=== PATIENT | female | born 1985 | race African-American/Black ===

== ENCOUNTER 2017-10-07 12:01 | Emergency (ER) | payer OTHER ==
[~2017-10-07] VITALS: Ht 170.2 cm; Wt 69.9 kg
[~2017-10-07 12:01] MED LIST: MOTRIN 800MG T800 MG PO; PERCOCET 325 MG1 TA2 PO
[2017-10-07 12:25] VITALS: BP 117/72
--- NOTE | 2017-10-07 12:37 | ED MVC/FALL/TRAUMA COMPLAINT ---
History of Present Illness General Chief Complaint: Fall Stated Complaint: FALL 24 WEEKS PREG/LBP Source: patient Exam Limitations: no limitations Vital Signs & Intake/Output Vital Signs & Intake/Output Vital Signs Date Time Temp Pulse Resp B/P B/P Pulse O2 O2 Flow FiO2 Mean Ox Delivery Rate 10/07 1319 98.1 10/07 1225 78 18 117/72 96 Room Air Allergies Coded Allergies: milk (DIARRHEA 10/07/17) Reconcile Medications No Known Home Medications Triage Note: PT TO ER FROM [facility] C/C COCCYX PAIN S/P SLIP AND FALL IN THE SNOW. PT WAS CLEARED BY [facility] AND HAD STRESS TEST. Triage Nurses Notes Reviewed? yes Onset: Abrupt Duration: constant Timing: single episode today Severity: mild Severity Numbers: 3 : Yes Patient currently breastfeeds: No HPI: Patient is a 32-year-old female who is approximately 24 weeks in which her OB is Dr. Wells who presents emergency room stating that while ambulating outside today in the snow she slipped and fell on her sacral coccyx region resulting cute onset of localized sacral pain. Patient denies any preceding episode lightheaded sensation or dizziness denies any head strike denies any neck or lumbar spine pain denies any extremity pain. Denies any nausea vomiting abdominal pain vaginal bleeding or discharge or dysuria. Patient was evaluated prior to emergency room encounter by [facility] which they cleared patient and advised patient to presents emergency room for evaluation of the event. (Sony Silva) Past History Travel History Traveled to [place] past 21 day No Medical History Any Pertinent Medical History? none Tetanus Vaccine: 06/23/12 Surgical History Surgical History: N Psychosocial History What is your primary language Italian Tobacco Use: Never used Family History Hx Contributory? No (Sony Silva) Review of Systems Review of Systems Constitutional: Reports: no symptoms. Eyes: Reports: no symptoms. Ears, Nose, Throat, Mouth: Reports: no symptoms. Respiratory: Reports: no symptoms. Cardiovascular: Reports: no symptoms. Gastrointestinal/Abdominal: Reports: no symptoms. Genitourinary: Reports: no symptoms. Musculoskeletal: Reports: see HPI. Skin: Reports: no symptoms. Neurological/Psychological: Reports: no symptoms. All Other Systems: Reviewed and Negative (Sony Silva) Physical Exam Physical Exam General Appearance: no apparent distress, alert, comfortable Head: atraumatic Eyes: Bilateral: normal appearance. Ears, Nose, Throat, Mouth: moist mucous membrane Neck: normal inspection Respiratory: normal breath sounds Cardiovascular: regular rate/rhythm Gastrointestinal: normal bowel sounds, soft, non-tender Back: normal inspection, mild sacral/coccyx pain upon palpation Extremities: normal range of motion Neurologic/Psych: no motor/sensory deficits, awake Core Measures ACS in differential dx? No CVA/TIA Diagnosis No Sepsis Present: No Sepsis Focused Exam Completed? No (Sony Silva) Progress Differential Diagnosis: abd injury, C/T/L spine injury, ext injury, ICH, pelvis injury, pnemothorax, spinal cord injury Plan of Care: Patient currently is in no apparent distress nontender abdomen has been cleared by childbirth center patient is neurovascular intact to bilateral lower extremities no signs of trauma on exam however patient does have concerns of suspecting coccyx injury X-rays were not pursued at this time due to patient's symptoms clinical presentation and physical exam and active Patient normal steady gait No or GI symptoms (Sony Silva) Departure Departure Disposition: HOME OR SELF CARE Condition: Stable Clinical Impression Primary Impression: Coccyx pain Secondary Impressions: Fall Referrals: Patient Has No Primary Care Dr (PCP/Family) Additional Instructions: As discussed if symptoms worsen or if he develop any new concerning symptom return to the emergency room, follow-up with your [facility] as directed, begin over -the-counter Tylenol for pain and inflammation Departure Forms: Customer Survey General Discharge Information Prescriptions: Current Visit Scripts No Known Home Medications (Sony Silva) PA/REPORT WRITER Co-Sign Statement Statement: ED Attending supervision documentation- I saw and evaluated the patient. I have also reviewed all the pertinent lab results and diagnostic results. I agree with the findings and the plan of care as documented in the PA's/REPORT WRITER's documentation. x I have reviewed the ED Record and agree with the PA's/REPORT WRITER's documentation. [] Additions or exceptions (if any) to the PAs/REPORT WRITER's note and plan are summarized below: [] (Donald TAFOYA,Guilherme)
== END 2017-10-07 13:19 ==
LOC: ERH 12:01
DX: O9A.212 Injury, poisoning and certain other consequences of external causes complicating pregnancy, second trimester (principal); M53.3 Sacrococcygeal disorders, not elsewhere classified; Z3A.24 24 weeks gestation of pregnancy
CPT/HCPCS: 99282; G0463

== ENCOUNTER 2018-01-21 06:08 | Inpatient (IN) | payer OTHER ==
[~2018-01-21] VITALS: Ht 170.2 cm; Wt 86.2 kg
--- NOTE | 2018-01-21 08:12 | History & Physical Pre-Op ---
General Information and HPI MD Statement: I have seen and personally examined NILES MADDOX and documented this H&P. The patient is a 32 year old F who presented with a patient stated chief complaint of 3 previous section []. History of Present Illness: 32-year-old 4 para [birth year]/08/2002 at 39 weeks gestation 3 previous sections adequate care positive group B strep in her urine Allergies/Medications Allergies: Coded Allergies: milk (DIARRHEA 10/07/17) Home Med list No Known Home Medications Past History Medical History Tetanus Vaccine: 06/23/12 Surgical History Pertinent Surgical History: N Review of Systems Review of Systems: -13 point review of systems as in HPI Exam & Diagnostic Data Physical Exam: This is a thin black female in no apparent distress HEENT anicteric Lungs clear Heart S1-S2 Abdomen soft estimated weight 3200 g Cervix long closed Extremities negative edema negative Homans Assessment/Plan Assessment/Plan: Assessment is term previous section 3 plan section type and cross As Ranked By This Provider Problem List: 1. Attending MD Review Statement Attending Statement Attending MD Statement: examined this patient
--- NOTE | 2018-01-21 09:32 | Operative Report ---
Operative/Inv Procedure Report Surgery Date: 01/21/18 Name of Procedure: Repeat low flap transverse section Via Pfannenstiel skin incision lysis of adhesions Pre-Operative Diagnosis: Term 3 previous sections Post-Operative Diagnosis: Same Estimated Blood Loss: 750 Surgeon/Assistant Manager Quality Management: Russell TAFOYA,Janis Rogers Anesthesia: block Operative/Procedure Note Note: Procedure note patient was taken to the operating room placed on position after adequate anesthesia patient placed in dorsolithotomy position adequate skin testing and timeout were performed for surgery. The abdomen was prepped and draped in sterile fashion Baehna was placed. Through an old Pfannenstiel skin incision skin was cut was carried down to rectus fascia which was cut in curvilinear fashion direction peritoneal cavity was entered high into the abdomen after adhesions were lysed from the rectus sheath lower blade of the Irasema was placed in lowering incision adhesions from the bladder flap were dissected bluntly as well as sharply in the lower uterine segment the uterus was nicked the bladder flap was developed a bladder blade was replaced to protect the bladder. This point the uterus was entered with the back of the knife dissected bluntly as well as sharply and all instruments were removed from the field and the infant was delivered over the abdominal wall cord was doubly clamped and cut was handed to pediatricians waiting delivery room to aid in resuscitation placenta was delivered manually noted to be intact was likely due to a dry laps to ensure it was free of adherent membranes as well as a horseshoe curettage of the uterus was performed to ensure that there was not an accreta. Hemostasis was achieved using intravenous Pitocin and intramyometrial Pitocin at this point use was closed running locking suture times 2 interrupted figure of eights were used for hemostasis use was turned to abdominal cavity the muscle was reapproximated using 0 6 sutures the peritoneum was reapproximated using 0 sutures the fascia was reapproximated using #1 times 2 subcutaneous tissue was Bovie coagulated as subcuticular closed with a #2 suture with Kenalog and Dermabond was performed patient tolerated that well at the end of the case the counts were correct the urine was clear mother and were transferred recovery room awake and alert Findings: Viable female infant three-vessel cord normal tubes and ovaries bilaterally fundal placenta
[2018-01-21 11:17] VITALS: BP 142/84
[2018-01-21] MEDS ORDERED: FERRALET 90 TA1 EACH PO (11:20)
[2018-01-21] MEDS ORDERED: PRILOSEC OTC20 M1 PO (11:20)
[2018-01-22 05:42] LABS: ABSOLUTE BASOPHIL COUNT 0.1 /CUMM (0.0-0.2); ABSOLUTE EOSINOPHIL COUNT 0.2 /CUMM (0.0-0.7); ABSOLUTE GRANULOCYTE CT 10.3 /CUMM (1.4-6.5); ABSOLUTE LYMPH COUNT 1.3 /CUMM (1.2-3.4); ABSOLUTE MONOCYTE COUNT 0.4 /CUMM (0.10-0.60); BASOPHIL % 0.5 % (0.0-2.0); EOSINOPHIL % 1.5 % (0-5); GRANULOCYTE % 84.2 % (42.2-75.2); MEAN CORPUSCULAR HGB 29.2 PG (27.0-31.0); MEAN CORPUSCULAR HGB CONC 32.5 G/DL (33.0-37.0); MEAN CORPUSCULAR VOLUME 89.8 FL (81.0-99.0); MEAN PLATELET VOLUME 10.4 FL (7.4-10.4); PLATELET COUNT 191 /CUMM (130-400); RBC DISTRIBUTION WIDTH 15.6 % (11.5-14.5); RED BLOOD CELL CT 2.67 /CUMM (4.20-5.40); WHITE BLOOD CELL COUNT 12.2 /CUMM (4.8-10.8)
--- NOTE | 2018-01-22 08:17 | PN- Post Delivery/GYN ---
Subjective Subjective: NO COMPLAINTS Objective Last 24 Hrs of Vital Signs/I&O Vital Signs Date Time Temp Pulse Resp B/P B/P Pulse O2 O2 Flow FiO2 Mean Ox Delivery Rate 01/21 1117 142/84 Physical Exam: PE THIN BF IN NAD ABD SOFT NT INCISION CDI FUNDUS FIRM NT EXT -EDEMA -HOMANS Assessment/Plan Assessment/Plan ASSESS S/P C/S ANEMIC PLAN ADVANCE DIET ADVANCE AMBULATION
[2018-01-23] MEDS ORDERED: PERCOCET 5-3251 EACH PO (09:00)
[2018-01-23] MEDS ORDERED: IBUPROFEN800 M1 PO (09:00)
== END 2018-01-23 14:40 | DRG 540 ==
LOC: GNO 06:08
PROVIDERS: Specialist
PROC: 10D00Z1 Extraction of Products of Conception, Low, Open Approach (ICD-10-PCS; principal; 2018-01-21)
DX: O34.211 Maternal care for low transverse scar from previous cesarean delivery (principal); N85.8 Other specified noninflammatory disorders of uterus; Z3A.39 39 weeks gestation of pregnancy; Z37.0 Single live birth; O99.824 Streptococcus B carrier state complicating childbirth
CPT/HCPCS: GNOS; 87086; J0131; J0690; J1650; J1885; J2765; J7120